=== PATIENT | female | born 1945 | race Caucasian/White ===

== ENCOUNTER 2016-08-16 14:49 | Outpatient (CLI) | payer MEDICARE, OTHER | END 2016-08-16 14:50 | disposition home or self-care (01) | DX: R53.83 Other fatigue (principal); E03.9 Hypothyroidism, unspecified; Z13.220 Encounter for screening for lipoid disorders ==

== ENCOUNTER 2017-07-06 11:17 | Outpatient (CLI) | payer MEDICARE, OTHER ==
--- NOTE | 2017-07-07 14:16 | Mammography Report ---
DIGITAL SCREENING MAMMOGRAM: 07/06/2017 CLINICAL INDICATION: A 72-year-old nulliparous patient with history of benign biopsies for screening. COMPARISON: Films from [place], [place], dated 02/19/2016, 03/05/2014, 05/07/2012, 08/18/2010 07/06/2009. TECHNIQUE: Routine CC and MLO projections were obtained of the breasts. FINDINGS: The breasts again demonstrate heterogeneously dense fibroglandular parenchyma bilaterally. Coarse and punctate, typically benign calcifications are present. No suspicious masses, clustered microcalcifications, or regions of architectural distortion are identified. IMPRESSION: BENIGN FINDINGS. RECOMMENDATION: Routine annual screening unless otherwise clinically indicated. BIRADS category 2 - benign findings. STANDARD QUALIFYING STATEMENTS: 1. This examination was reviewed with the aid of Computer-Aided Detection (CAD). 2. A negative or benign imaging report should not delay biopsy if clinically suspicious findings are present. Consider surgical consultation if warranted. More than 5% of cancers are not identified by imaging. 3. Dense breasts may obscure an underlying neoplasm. TD: 07/07/2017 14:15
== END 2017-07-06 11:18 | disposition home or self-care (01) ==
LOC: DI.S 11:17
PROVIDERS: ATTEND Internal Medicine
DX: Z12.31 Encounter for screening mammogram for malignant neoplasm of breast (principal)
CPT/HCPCS: 77067

== ENCOUNTER 2018-04-04 11:03 | Outpatient (CLI) | payer MEDICARE, OTHER ==
--- NOTE | 2018-04-04 11:59 | XRAY Report ---
Reason: OTHER BURSITIS OF HIP,LEFT HIP Procedure Date: 04/04/2018 Accession Number: [id number] / [id number] Procedure: XR - Hip w/Pelvis 2-3V LT CPT Code: FULL RESULT: EXAM: LEFT HIP AND PELVIS RADIOGRAPHY EXAM DATE: 04/04/2018 11:17 AM. HISTORY: Left sided hip pain for 1 month. COMPARISONS: None. TECHNIQUE: 1 view of the pelvis and 1 view of the hip. FINDINGS: The patient is status post bilateral hip arthroplasty, long stem prosthesis on the right. Less than 1 mm of periprosthetic lucency on the left is felt to remain within normal limits. No hardware failure, dislocation or fracture is identified. IMPRESSION: Status post bilateral hip arthroplasty. RADIA
== END 2018-04-04 11:04 | disposition home or self-care (01) ==
LOC: DI 11:03
PROVIDERS: ATTEND Nurse Practitioner Family
DX: M70.72 Other bursitis of hip, left hip (principal); Z96.643 Presence of artificial hip joint, bilateral

== ENCOUNTER 2021-02-14 12:23 | Outpatient (CLI) | payer MEDICARE, OTHER ==
--- NOTE | 2021-02-16 10:22 | Mammography Report ---
BILATERAL DIGITAL SCREENING MAMMOGRAM 3D/2D WITH EXAGGERATED CC: 02/14/2021 CLINICAL: Routine screening. Comparison is made to exams dated: 07/06/2017 mammogram - [facility], 03/05/2014 mamm ogram, 09/20/2005 mammogram, 09/26/2006 mammogram, 04/04/2008 mammogram, and 07/06/2009 mammogram - [facility]. The tissue of both breasts is predominantly fatty. No significant masses, calcifications, or other findings are seen in either breast. There has been no significant interval change. IMPRESSION: NEGATIVE There is no mammographic evidence of malignancy. A 1 year screening mammogram is recommended. This exam was interpreted at Station ID: [id number]. NOTE: For mammograms, a report in lay terms will be sent to the patient. Approximately 15% of breast malignancies will not be visualized mammographically. In the management of a palpable breast mass, a negative mammogram must not discourage biopsy of a clinically suspicious lesion. Electronically Signed By: Raymundo Whittington M.D., jr/rey:02/15/2021 08:35:37 ACR BI-RADS Category 1: Negative 3341F PARENCHYMAL PATTERN: (F) - The breast(s) demonstrate(s) diffuse fatty replacement. BI-RADS CATEGORY: (1) - 1 RECOMMENDATION: (ANNUAL) - Recommend routine annual screening mammography. [id number] 1 year screening LATERALITY: (B)
== END 2021-02-14 12:24 | disposition home or self-care (01) ==
LOC: DI.S 12:23
PROVIDERS: ATTEND Internal Medicine
DX: Z12.31 Encounter for screening mammogram for malignant neoplasm of breast (principal)

== ENCOUNTER 2021-06-07 14:54 | Outpatient (CLI) | payer MEDICARE, OTHER ==
--- NOTE | 2021-06-07 16:26 | XRAY Report ---
PROCEDURE: Cervical Spine 2 View INDICATIONS: NECK PAIN TECHNIQUE: 3 view(s) of the cervical spine were acquired. COMPARISON: None. FINDINGS: Bones: No fractures or dislocations to the T1 level. Loss of normal cervical lordosis. Multilevel di sc space narrowing and endplate osteophyte formation. Anterior fusion hardware at C5-C6. Facet hypert rophy throughout the mid and lower cervical spine. The lateral masses of C1 appear intact on the odon toid view. No suspicious bony lesions. Soft tissues: No prevertebral soft tissue swelling. IMPRESSION: 1. Postsurgical sequelae. 2. Multilevel degenerative disc and facet disease. Reviewed by: Cheryl Darling MD on 06/07/2021 4:25 PM PST Approved by: Cheryl Darling MD on 06/07/2021 4:25 PM PST Station ID: [id number]
== END 2021-06-07 14:55 | disposition home or self-care (01) ==
LOC: DI.S 14:54
PROVIDERS: ATTEND Nurse Practitioner Family
DX: M47.812 Spondylosis without myelopathy or radiculopathy, cervical region (principal); M50.30 Other cervical disc degeneration, unspecified cervical region

== ENCOUNTER 2021-10-15 10:33 | Outpatient (CLI) | payer MEDICARE, OTHER ==
[2021-10-15 14:49] LABS: BASOPHILS % (AUTO) 0.7 %; EOSINOPHILS # (AUTO) 0.1 10^3/uL (0.0-0.7); EOSINOPHILS % (AUTO) 2.3 %; HGB - HEMOGLOBIN 13.6 g/dL (12.0-16.0); LYMPHOCYTES # (AUTO) 1.6 10^3/uL (1.5-3.5); LYMPHOCYTES % (AUTO) 28.3 %; MEAN CORPUSCULAR HEMOGLOBIN 31.3 pg (27.0-31.0); MEAN CORPUSCULAR HGB CONC 31.6 g/dL (32.0-36.0); MEAN CORPUSCULAR VOLUME 99.1 fL (81.0-99.0); MEAN PLATELET VOLUME 11.9 fL (7.9-10.8); MONOCYTES # (AUTO) 0.6 10^3/uL (0.0-1.0); MONOCYTES % (AUTO) 9.9 %; NEUTROPHILS # (AUTO) 3.3 10^3/uL (1.5-6.6); NEUTROPHILS % (AUTO) 58.6 %; PLT - PLATELET COUNT 275 10^3/uL (130-450); RED BLOOD COUNT 4.34 10^6/uL (4.20-5.40); RED CELL DISTRIBUTION WIDTH 12.9 % (12.0-15.0); WHITE BLOOD COUNT 5.7 x10^3/uL (4.8-10.8)
[2021-10-15 16:13] LABS: THYROID STIMULATING HORMONE 1.4 uIU/mL (0.34-5.60)
[2021-10-15 16:24] LABS: ALBUMIN 4.1 g/dL (3.2-5.5); ALBUMIN/GLOBULIN RATIO 1.5 (1.0-2.2); BILIRUBIN,TOTAL 0.7 mg/dL (0.2-1.0); CALCIUM 9.7 mg/dL (8.5-10.3); CREATININE 0.8 mg/dL (0.4-1.0); POTASSIUM 4.3 mmol/L (3.5-5.0); TOTAL PROTEIN 6.8 g/dL (6.7-8.2)
[2021-10-16 07:08] LABS: HCV AB <0.1 s/co ratio (0.0-0.9)
== END 2021-10-15 10:34 | disposition home or self-care (01) ==
LOC: LAB.S 10:33
PROVIDERS: ATTEND Nurse Practitioner Family
DX: R53.83 Other fatigue (principal); E03.9 Hypothyroidism, unspecified
CPT/HCPCS: 36415; 80053; 84443; 85025; 86803; 87389

== ENCOUNTER 2023-02-13 14:17 | Outpatient (CLI) | payer MEDICARE, OTHER ==
--- NOTE | 2023-02-14 09:38 | Mammography Report ---
BILATERAL DIGITAL SCREENING MAMMOGRAM 3D/2D: 02/13/2023 CLINICAL: Routine screening. Comparison is made to exams dated: 02/14/2021 mammogram, 07/06/2017 mammogram - [facility], 03/05/2014 mammogram, and 03/05/2014 mammogram - [facility]. Both breasts are heterogeneously dense, which may obscure small masses (category c / 51-75% glandular tissue). No significant masses, calcifications, or other findings are seen in either breast. There has been no significant interval change. IMPRESSION: NEGATIVE There is no mammographic evidence of malignancy. A 1 year screening mammogram is recommended. Based on the Tyrer Cuzick model (a risk assessment model) the patients lifetime risk is 5.0% and her 10 year risk is 0.0%. According to the ACR, ACS, and NCCN guidelines, an annual breast MRI exam jazz g with mammogram is recommended if the patients lifetime risk is 20% or greater. This exam was interpreted at Station ID: [id number]. NOTE: For mammograms, a report in lay terms will be sent to the patient. Approximately 15% of breast malignancies will not be visualized mammographically. In the management of a palpable breast mass, a negative mammogram must not discourage biopsy of a clinically suspicious lesion. Electronically Signed By: Cara beach/rey:02/13/2023 17:21:37 letter sent: No_Letter ACR BI-RADS Category 1: Negative 3341F PARENCHYMAL PATTERN: (D) - The breast(s) demonstrate(s) heterogeneously dense fibroglandular tye [place]. BI-RADS CATEGORY: (1) - 1 Mammogram [id number] 1 year screening LATERALITY: (B)
== END 2023-02-13 14:18 | disposition home or self-care (01) ==
LOC: DI 14:17
PROVIDERS: ATTEND Nurse Practitioner Family
DX: Z12.31 Encounter for screening mammogram for malignant neoplasm of breast (principal); R92.333 Mammographic heterogeneous density, bilateral breasts

== ENCOUNTER 2023-02-13 14:18 | Outpatient (CLI) | payer MEDICARE, OTHER ==
--- NOTE | 2023-02-13 15:22 | DEXA Report ---
PROCEDURE: Dexa Spine and/or Hip INDICATIONS: POST MENOPAUSAL TECHNIQUE: Dual energy x-ray absorptiometry (DXA) was performed on a Personal On Demand System. Regions measur ed are the AP Spine, femoral neck, and if needed forearm. COMPARISON: None FINDINGS: Lumbar Spine: Bone Mineral Density 1.432 g/cm/cm,T score 2.1. Left Forearm: Bone Mineral Density 0.4-3 g/cm/cm, T score -4.3. (T score greater or equal to -1.0: NORMAL) (T score from -1.1 to -2.4: OSTEOPENIA) (T score less than or equal to -2.5 to: OSTEOPOROSIS) Impression: By WHO criteria, this patient has osteoporosis. Patients with diagnosis of osteoporosis or osteopenia should have regular bone mineral density assess ment. For those eligible for Medicare, routine testing is allowed once every 2 years. Testing frequ ency can be increased for patients who have rapidly progressing disease or for those who are receivin g medical therapy to restore bone mass. Reviewed by: Daljit Wilson on 02/13/2023 3:20 PM PDT Approved by: Daljit Wilson on 02/13/2023 3:20 PM PDT Station ID: [id number]
== END 2023-02-13 14:19 | disposition home or self-care (01) ==
LOC: DI 14:18
PROVIDERS: ATTEND Nurse Practitioner Family
DX: M81.0 Age-related osteoporosis without current pathological fracture (principal); Z78.0 Asymptomatic menopausal state

== ENCOUNTER 2023-02-16 09:58 | Outpatient (CLI) | payer MEDICARE, OTHER | END 2023-02-16 09:59 | disposition critical access hospital (66) | LOC: EMS 09:58 | DX: R47.1 Dysarthria and anarthria (principal) | CPT/HCPCS: A0425; A0429 ==

== ENCOUNTER 2023-02-16 10:37 | Emergency (ER) | payer MEDICARE, OTHER ==
--- NOTE | 2023-02-16 11:20 | ED Physician Documentation ---
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 The next morning she noticed blurriness of vision which continued through the day. No other focal deficits. No loss of vision. +word search.) Timing - details: Abrupt onset (She had what seem like her ophthalmic migraine 1 and half nights ago. She noticed some blurry vision yesterday through the day. She had not spoken with anyone. Talking this morning she noticed some word search and slow speech pattern. No other focal deficits.) Severity of deficit: Mild Weakness: No: Face, Arm, Leg Numbness: No: Face, Arm, Leg Associated symptoms: Other (trouble word search and slower speech pattern. No dysarthria.). No: Headache, Nausea / vomiting, Fall, Head injury Contributing factors: negative: Anticoagulated, Vascular dz, Atrial fibrillation Review of Systems Constitutional: denies: Fever, Chills Eyes: denies: Loss of vision Nose: denies: Rhinorrhea / runny nose, Congestion Throat: denies: Sore throat Cardiac: denies: Chest pain / pressure, Palpitations Respiratory: denies: Cough Musculoskeletal: denies: Neck pain, Back pain Neurologic: reports: Difficulty speaking. denies: Focal weakness, Numbness PD PAST MEDICAL HISTORY - Past Medical History Cardiovascular: None Respiratory: None Neuro: None Endocrine/Autoimmune: None Psych: Depression (recently changed from Lexapro to Prozac 2 months ago and Had purporion increased 150 to 300 mg 2 weeks ago. Feeling okay with it. ) - Present Medications Home Medications: Ambulatory Orders Medication Instructions Recorded Confirmed Fluoxetine HCl [Prozac] 20 mg PO DAILY 02/16/23 02/16/23 Levothyroxine [Synthroid] 100 mcg PO QDAC 02/16/23 02/16/23 Losartan [Cozaar] 50 mg PO DAILY 02/16/23 02/16/23 buPROPion HCL [Wellbutrin Xl] 300 mg PO DAILY 02/16/23 02/16/23 - Allergies Allergies/Adverse Reactions: Allergies Allergy/AdvReac Type Severity Reaction Status Date / Time codeine Allergy Rash Verified 02/16/23 10:49 Penicillins Allergy Rash Verified 02/16/23 10:49 Sulfa (Sulfonamide Allergy Rash Verified 02/16/23 10:49 Antibiotics) PD ED PE NORMAL - Vitals Vital signs reviewed: Yes - General General: Alert and oriented X 3, Well developed/nourished - HEENT HEENT: Atraumatic - Neck Neck: Supple, no meningeal sign, No adenopathy, No JVD, No bruit - Cardiac Cardiac: RRR, No murmur - Respiratory Respiratory: Clear bilaterally - Abdomen Abdomen: Soft, Non tender - Derm Derm: Normal color, Warm and dry - Neuro Neuro: Alert and oriented X 3, solvent plant treater 2-12 intact, No motor deficit, No sensory deficit. No: Normal speech (mild pauses for word search and somewhat slow speech meter. ) Eye Opening: Spontaneous Motor: Obeys Commands Verbal: Oriented GCS Score: 15 NIHSS - Level of Consciousness Level of consciousness: (0) Alert, Keenly responsive LOC Questions: (0) Answers both Q's correct LOC Commands: (0) Performs both correctly - Gaze Best Gaze: (0) Normal - Visual Visual: (0) No loss - Facial Palsy Facial Palsy: (0) Normal, symmetrical movement - Motor Arms (both separate) Motor Arm (right): (0) No drift Motor Arm (left): (0) No drift - Motor Legs (both separate) Motor Leg (right): (0) No drift Motor Leg (left): (0) No drift - Limb Ataxia Limb Ataxia: (0) Absent - Sensory Sensory: (0) Normal - Best Language Best Language: (1) [id number] - Dysarthria Dysarthria: (0) Normal - Extinction and Inattention (formally neg Extinction and inattention: (0) No abnormality - Total Score/Results Total Score/Result: 1 Results - Vitals Vitals: Vital Signs - 24 hr 02/16/23 02/16/23 02/16/23 10:45 14:15 16:00 Temperature 36.6 C Heart Rate 62 62 59 L Respiratory 16 16 15 Rate Blood Pressure 182/92 H 161/81 H 166/104 H O2 Saturation 97 98 98 02/16/23 02/16/23 18:00 20:22 Temperature 36.7 C Heart Rate 66 57 L Respiratory 15 23 Rate Blood Pressure 196/117 H 162/89 H O2 Saturation 99 98 Oxygen O2 Source Room air - Labs Labs: Laboratory Tests 02/16/23 02/16/23 02/16/23 12:00 12:00 12:00 WBC 6.5 RBC 4.44 Hgb 14.2 Hct 43.4 MCV 97.7 MCH 32.0 H MCHC 32.7 RDW 12.0 Plt Count 252 MPV 11.1 H Neut # (Auto) 4.6 Lymph # (Auto) 1.3 L [place] # (Auto) 0.5 Eos # (Auto) 0.1 Baso # (Auto) 0.0 Absolute Nucleated RBC 0.00 Nucleated RBC % 0.0 ESR 4 Sodium 140 Potassium 4.1 Chloride 104 Carbon Dioxide 30 Anion Gap 6.0 BUN 23 H Creatinine 0.8 Estimated GFR (MDRD) 70 L Glucose 92 Calcium 9.8 Magnesium 1.9 Total Bilirubin 0.8 AST 18 ALT 14 Alkaline Phosphatase 70 Total Protein 6.9 Albumin 4.4 Globulin 2.5 Albumin/Globulin Ratio 1.8 Lipase 20 SARS-CoV-2 (PCR) 02/16/23 19:06 WBC RBC Hgb Hct MCV MCH MCHC RDW Plt Count MPV Neut # (Auto) Lymph # (Auto) [place] # (Auto) Eos # (Auto) Baso # (Auto) Absolute Nucleated RBC Nucleated RBC % ESR Sodium Potassium Chloride Carbon Dioxide Anion Gap BUN Creatinine Estimated GFR (MDRD) Glucose Calcium Magnesium Total Bilirubin AST ALT Alkaline Phosphatase Total Protein Albumin Globulin Albumin/Globulin Ratio Lipase SARS-CoV-2 (PCR) NOT DETECTED PD Medical Decision Making - ED course Complexity details: reviewed results, considered differential, d/w patient, d/w device sales consultant (Dr. Cornejo - telestroke - who recommends trnasfer to Vascular due to symptomatic stenosis, for presumed intervention.) Reviewed Lab Results: Brain MRI was done which showed a left posterior frontal infarct consistent with a MCA distribution. There was a small area of injury also in the posterior parietal, again likely MCA distribution. No tumor swelling or bleeding. We then were going to get a carotid ultrasound but there was a delay in the ultrasound techs being available so I shared decision with the patient changed to a CT angio of the head and neck. This showed a 40 to 50% stenosis on the right internal carotid (insignificant) but a 70-80% stenosis on the left internal carotid. Unclear on the clinical significance and course of treatment for this so I will consult stroke neurology for advice. The patient was given aspirin and Plavix here in the department. Awaiting callback from neurology. Labs were normal without any electrolyte abnormalities nor blood count abnormalities. The patient had wondered whether her symptoms could be a side effect of the recent medication increases. Given the positive stroke findings on the MRI, inclined to think its not related to the medications. ED course: The patient has some expressive aphasia and slow speech pattern along with some blurred vision on the right though that has improved. The symptoms started likely yesterday but vision tinsley was 1-1/2 nights ago which was consistent with her vascular ophthalmic migraine. No history of stroke or A-fib. She was noted to have some word searching and some mild slow meter to her speech pattern but no dysarthria nor focal deficits otherwise. Brain MRI showed left MCA frontal and posterior temporal infarcts consistent with embolic. We were going to do a carotid ultrasound but there was a delay in obtaining that and so shared decision opted for CT angio of the neck and head. This showed a 70 to 80% stenosis of the left internal carotid. I discussed this with the telestroke neurology who recommended transfer to a facility with playground attendant for presumably endovascular intervention given the symptomatic degree of stenosis. The neurologist did concur with aspirin and Plavix and did not see need for heparin. I kept the patient abreast of the findings along the way. There was a couple of hour process in getting the brain MRI which was more useful and definitive and then some delay in awaiting the ultrasound and then getting the CT angio. The patient has not had any worsened symptoms. In fact her speech pattern is now quite normal and she feels it is back to her normal. However she does have the acute stroke on brain MRI. She was given aspirin and Plavix here in the department. We are having our community living coach start looking for bed availability at other facilities. Her blood pressure has been reasonable at 160s systolic. After hearing the results earlier and then with the CT scan her blood pressure has been increasing. Last reading was approximately 1 90-200 systolic. At this point I think it is a bit more anxiety related and also she had not had her morning losartan. We will give her dose of losartan for the day and I will actually start with 0.5 mg lorazepam and see if that helps her blood pressure the most as likely just a catecholamine effect from the situational stress. Reassess the blood pressure and an hour or so and see if it is improving. Given the recent acute stroke, permissive moderate elevation of blood pressure is reasonable and I would not wanted to go low normal per se. Departure - Departure Disposition: 02 Transfer Acute Care Hosp Clinical Impression: Expressive aphasia Cerebrovascular accident (CVA) Qualifiers: CVA mechanism: embolism Precerebral and cerebral artery: middle cerebral artery Laterality of affected vessel: left Qualified Code(s): I63.412 - Cerebral infarction due to embolism of left middle cerebral artery Stenosis of internal carotid artery with cerebral infarction Qualifiers: Laterality: left Qualified Code(s): I63.232 - Cerebral infarction due to unspecified occlusion or stenosis of left carotid arteries Condition: Stable Record reviewed to determine appropriate education?: Yes Forms: PCP List
[2023-02-16 12:06] LABS: BASOPHILS % (AUTO) 0.5 %; EOSINOPHILS # (AUTO) 0.1 10^3/uL (0.0-0.7); EOSINOPHILS % (AUTO) 1.5 %; HCT - HEMATOCRIT 43.4 % (37.0-47.0); HGB - HEMOGLOBIN 14.2 g/dL (12.0-16.0); LYMPHOCYTES # (AUTO) 1.3 10^3/uL (1.5-3.5); LYMPHOCYTES % (AUTO) 20.5 %; MEAN CORPUSCULAR HGB CONC 32.7 g/dL (32.0-36.0); MEAN CORPUSCULAR VOLUME 97.7 fL (81.0-99.0); MEAN PLATELET VOLUME 11.1 fL (7.9-10.8); MONOCYTES # (AUTO) 0.5 10^3/uL (0.0-1.0); MONOCYTES % (AUTO) 6.9 %; NEUTROPHILS # (AUTO) 4.6 10^3/uL (1.5-6.6); NEUTROPHILS % (AUTO) 70.4 %; PLT - PLATELET COUNT 252 10^3/uL (130-450); RED BLOOD COUNT 4.44 10^6/uL (4.20-5.40); WHITE BLOOD COUNT 6.5 x10^3/uL (4.8-10.8)
[2023-02-16 12:33] LABS: ALBUMIN 4.4 g/dL (3.2-5.5); ALBUMIN/GLOBULIN RATIO 1.8 (1.0-2.2); BILIRUBIN,TOTAL 0.8 mg/dL (0.2-1.0); CALCIUM 9.8 mg/dL (8.5-10.3); CREATININE 0.8 mg/dL (0.6-1.3); MAGNESIUM 1.9 mg/dL (1.7-2.3); POTASSIUM 4.1 mmol/L (3.5-4.5); TOTAL PROTEIN 6.9 g/dL (6.4-8.9)
--- NOTE | 2023-02-16 13:58 | MRI Report ---
PROCEDURE: BRAIN WO INDICATIONS: expressive aphasia for a day TECHNIQUE: Noncontrast axial T1 spin echo, axial T2 fast spin echo, sagittal and axial FLAIR, coronal T2 fast sp in echo, axial gradient echo, axial diffusion and ADC through the brain. COMPARISON: None. FINDINGS: Image quality: Excellent. CSF Spaces: Basal cisterns are patent. No extra-axial fluid collections. Ventricles are normal in size and shape. Brain: No intracranial masses or hemorrhage. Vargas/white matter interface is normal. Brainstem appe ars normal. Diffusion-weighted images of acute left MCA distribution infarct predominantly involving frontal cortex, and also some peripheral deep white matter subjacent to the cortex the infarct invol ves a moderate amount of frontal cortex. There is also a small amount of infarcted brain parenchyma i n the posterior left temporal region and temporal occipital region.. There is associated cytotoxic ed salma present. Findings are consistent with a left MCA distribution embolic event. No evidence of hemor rhage. No shift. No chronic ischemic insults. Mild small vessel ischemic change. Normal intravascular flow voids are present. Skull and face: Calvarium has normal marrow signal. Orbits appear normal. Sinuses: Sinuses and mastoids are clear. IMPRESSION: 1. Acute left MCA distribution embolic infarct predominantly involving a moderate sized area of left frontal cortex. 2. There is also a small area of infarct involving the posterior left temporal lobe and temporal occi pital junction region. This may potentially be related to an MCA distribution infarct, or potentially can indicate a cardiac source with 2 separate left-sided vascular distributions. Reviewed by: Hernesto Rivera MD on 02/16/2023 1:57 PM PDT Approved by: Hernesto Rivera MD on 02/16/2023 1:57 PM PDT Station ID: [id number]
[2023-02-16] MEDS ORDERED: ASPIRIN CHEW 81 MG TABLET PO STA (14:47)
[2023-02-16] MEDS ORDERED: CLOPIDOGREL 75 MG TABLET PO STA (14:47)
--- NOTE | 2023-02-16 17:45 | CT Report ---
PROCEDURE: CT Angio Head/Neck INDICATIONS: word search, confused for 15 min today TECHNIQUE: After the administration of intravenous contrast, 1 mm thick sections acquired from the aortic arch t hrough the [place]. Post-contrast 4.5 mm thick sections then re-acquired from the foramen m agnum to the vertex. 3-dimensional luihrbx-wmzuxqpia-dbnykzbimj (MIP) and/or volume rendering reform ats were acquired of the central intracranial vasculature and neck separately. For radiation dose re duction, the following was used: automated exposure control, adjustment of mA and/or kV according to patient size. CONTRAST: Omni 300 80ml COMPARISON: Correlation is made to accompanying brain MRI. FINDINGS: Image quality: Limited by bolus timing, with venous contamination. There is streak artifact seen thr ough the level of the shoulders. HEAD CT: CSF Spaces: Basal cisterns are patent. No extra-axial fluid collections. Ventricles are normal in size and shape. Brain: No midline shift. No intracranial bleeds or masses. No abnormal intracranial enhancement. Vargas-white interface appears normal. Skull and face: Calvarium and visualized facial bones appear intact, without suspicious lesions. Sinuses: Visualized sinuses and mastoids are clear. HEAD CT ANGIOGRAPHY: Anterior circulation: Intracranial internal carotid arteries are normal in size and flow. The flow within the paired anterior cerebral arteries is normal and symmetric. The flow within the middle cer ebral arteries is normal and symmetric. The anterior communicating artery is seen. No aneurysms are seen. Posterior circulation: The visualized portions of the vertebral arteries demonstrate normal caliber, and join to form a normal appearing basilar artery. Incidental note is made of a prominent left po sterior communicating artery, with a diminutive left P1 segment. This is attributed to a type o rigin of the right posterior cerebral artery, which is considered to be a developmental variant of ty pically no clinical consequence. The flow within the posterior cerebral arteries is normal and symm etric. No stenoses, occlusions, or aneurysms. NECK CT ANGIOGRAPHY: Carotid system: The great vessels demonstrate a conventional anatomy as they arise from the aortic a rch. The origins of the common carotid arteries appear patent. The common carotid arteries demonstr ate normal caliber and courses. The bifurcation regions demonstrate atherosclerotic irregularity and calcification. There is 70-80% narrowing seen involving the left proximal internal carotid artery. T here is 40-50% narrowing seen involving the right proximal internal carotid artery. The more distal i nternal carotid arteries demonstrate normal course and caliber. Posterior circulation: The origins of the vertebral arteries both appear widely patent. The more cosby perior extracranial portions of both vertebral arteries also demonstrate normal courses and calibers. They join to form a normal appearing basilar artery. Soft tissues: Visualized neck soft tissues demonstrate no suspicious abnormalities. Bones: No suspicious bony lesions. Visualized cervical spine appears normally aligned. There is fu wiliam seen involving the C3-C4 level. Anterior fixation hardware can be seen at C5-C6. Focal degenerat [place] change is seen at C6-C7. IMPRESSION: Focal 70-80% narrowing seen involving the left internal carotid artery origin. No significant vertebral artery abnormality is seen. No significant intracranial arterial abnormalities are seen. Additional findings: type origin of the left posterior cerebral artery Cervical spine postoperative and degenerative change. The estimate of stenosis included in the report of the imaging study was calculated using the NASCET method Reviewed by: Srinivasan Slaughter MD on 02/16/2023 4:44 PM RUBEN Approved by: Srinivasan Slaughter MD on 02/16/2023 4:44 PM RUBEN Station ID: [id number]
[2023-02-16] MEDS ORDERED: iohexoL-300 100 ML VIAL IVP ONE (18:51)
[2023-02-16] MEDS ORDERED: LOSARTAN 50 MG TABLET PO STA (19:12)
[2023-02-16] MEDS ORDERED: LORazepam 2 MG/ML VIAL IVP STA (19:13)
--- NOTE | 2023-02-17 00:57 | ED Physician Documentation ---
ED Addendum - Addendum Addendum: 02/17/23 00:56 Patient endorsed to me by daytime physician at 10 PM shift change. Med rec was completed and I have have ordered her home medications in addition to aspirin and a statin daily. If patient does not go to bed at [facility] overnight I will endorsed to incoming daytime EDMD at 7 AM shift change.
[2023-02-17] MEDS ORDERED: ATORVASTATIN 40 MG TABLET PO SCH (07:00)
[2023-02-17] MEDS ORDERED: LEVOTHYROXINE 100 MCG TABLET PO SCH (07:00)
[2023-02-17] MEDS ORDERED: buPROPion SR 150 MG TABLET PO SCH (07:00)
[2023-02-17] MEDS ORDERED: ASPIRIN 325 MG TABLET PO SCH (07:00)
[2023-02-17] MEDS ORDERED: FLUoxetine 10 MG CAPSULE PO SCH (09:00)
[2023-02-17] MEDS ORDERED: LOSARTAN 50 MG TABLET PO SCH (09:00)
[2023-02-17] MEDS ORDERED: CLOPIDOGREL 75 MG TABLET PO SCH (10:00)
[2023-02-17 10:14] VITALS: O2SAT 98
[2023-02-17 12:26] VITALS: BP 176/82
--- NOTE | 2023-02-17 12:48 | ED Physician Documentation ---
ED Addendum - Addendum Addendum: 02/17/23 12:46 I received a call from Anastasiya Peter who is vascular surgeon at [facility]. They do not have any beds available but he said he there standard by vascular surgery would be intervention within a week for this degree of stenosis. That had been stated by the stroke neurologist as well. The attempted transfer was to be able to expedite that. However Dr. Peter said he will be able to contact the patient and arrange outpatient endovascular intervention at [facility] early next week, likely Monday. This will fit within the 1 week timeframe. The patient is to continue her aspirin and Plavix and return if recurring symptoms. Otherwise they do have the patient's demographics and we will call her this afternoon with that time and date of to show up in any instructions preceding. At this point the patient will be discharged home in stable condition Diagnoses: Acute left stroke 2. Expressive aphasia 3. Internal carotid stenosis on the left The patient is awake alert and conversant at this time. She is not having any aphasia continued. No other focal deficits. She is in agreement with the plan. Her friend is with her and will assist in getting her there next week.
== END 2023-02-17 13:21 | disposition home or self-care (01) ==
LOC: EDUNIT# → SUPCPDRO 10:37 → ED 10:37
DX: I63.412 Cerebral infarction due to embolism of left middle cerebral artery (principal); R29.701 NIHSS score 1; I63.232 Cerebral infarction due to unspecified occlusion or stenosis of left carotid arteries; I69.320 Aphasia following cerebral infarction; Z20.822 Contact with and (suspected) exposure to COVID-19
CPT/HCPCS: 36415; 70496; 70498; 70551; 80053; 83690; 83735; 85025; 85651; 87635; 93005; 99284; A9270; J2060; Q9967

== ENCOUNTER 2023-04-17 18:13 | Outpatient (CLI) | payer MEDICARE, OTHER | END 2023-04-17 23:58 | disposition critical access hospital (66) | LOC: EMS 18:13 | DX: I48.91 Unspecified atrial fibrillation (principal) | CPT/HCPCS: A0425; A0427 ==

== ENCOUNTER 2023-04-17 18:46 | Emergency (ER) | payer MEDICARE, OTHER ==
--- NOTE | 2023-04-17 19:58 | ED Physician Documentation ---
History of Present Illness - Stated complaint Stated Complaint: PALPITATIONS, AFIB - Chief complaint Chief Complaint: Cardiac - History obtained from History obtained from: Patient, Family - History of Present Illness Timing: Today Pain level max: 0 Pain level now: 0 - Additonal information Additional information: 78-year-old female with a history of atrial fibrillation. She is on Eliquis and Pradaxa at home. She states that she bought a home ECG monitor and today she did an ECG and found herself to be in atrial fibrillation. She had been cardioverted several weeks ago. She is asymptomatic. No chest pain. No shortness of breath. No fevers. No chills. No numbness or tingling. Nothing makes it better or worse. She initially was tachycardic with EMS, they gave 500 mL of normal saline and heart rate decreased to 90-100. She is on metoprolol at home. Recently decreased from 50 mg of the extended release to 25 mg extended release. Review of Systems Constitutional: denies: Fever, Chills Ears: denies: Ear pain Nose: denies: Rhinorrhea / runny nose, Congestion Throat: denies: Sore throat Cardiac: denies: Chest pain / pressure, Palpitations, Calf pain Respiratory: denies: Dyspnea, Cough GI: denies: Abdominal Pain, Nausea, Vomiting, Diarrhea : denies: Dysuria Skin: denies: Rash Musculoskeletal: denies: Neck pain Neurologic: denies: Headache PD PAST MEDICAL HISTORY - Past Medical History Past Medical History: Yes Cardiovascular: Hypertension Respiratory: None Neuro: None Endocrine/Autoimmune: None GI: None NAPPER TENDER: None : None HEENT: Other Psych: Depression Musculoskeletal: None Derm: None - Past Surgical History Past Surgical History: Yes Ortho: Hip replacement HEENT: Cataracts - Present Medications Home Medications: Ambulatory Orders Medication Instructions Recorded Confirmed Fluoxetine HCl [Prozac] 20 mg PO DAILY 02/16/23 02/17/23 Levothyroxine [Synthroid] 100 mcg PO QDAC 02/16/23 02/17/23 Losartan [Cozaar] 50 mg PO DAILY 02/16/23 02/17/23 buPROPion HCL [Wellbutrin Xl] 300 mg PO DAILY 02/16/23 02/17/23 Clopidogrel [Plavix] 75 mg PO DAILY 30 Days #30 tablet 02/17/23 - Allergies Allergies/Adverse Reactions: Allergies Allergy/AdvReac Type Severity Reaction Status Date / Time codeine Allergy Rash Verified 02/16/23 10:49 Penicillins Allergy Rash Verified 02/16/23 10:49 Sulfa (Sulfonamide Allergy Rash Verified 02/16/23 10:49 Antibiotics) - Social History Does the pt smoke?: No Smoking Status: Never smoker Does the pt drink ETOH?: No Does the pt have substance abuse?: No - Immunizations Immunizations are current?: Yes - POLST Patient has POLST: No PD ED PE NORMAL - Vitals Vital signs reviewed: Yes - General General: Alert and oriented X 3, No acute distress - HEENT HEENT: PERRL, Moist mucous membranes - Neck Neck: Supple, no meningeal sign - Cardiac Cardiac: Other (irregularly irregular) - Respiratory Respiratory: No respiratory distress, Clear bilaterally - Abdomen Abdomen: Soft, Non tender, Non distended - Back Back: No CVA TTP, No spinal TTP - Derm Derm: Warm and dry, No rash - Extremities Extremities: No edema, No calf tenderness / cord - Neuro Neuro: Alert and oriented X 3 - Psych Psych: Normal mood, Normal affect Results - Vitals Vitals: Vital Signs - 24 hr 04/17/23 04/17/23 04/17/23 18:56 19:01 20:07 Temperature 35.9 C L Heart Rate 102 H 103 H 114 H Respiratory 15 19 15 Rate Blood Pressure 138/94 H 138/98 H 140/99 H O2 Saturation 98 93 97 Oxygen O2 Source Room air - EKG (time done) 1937 EKG releavant findings:: EKG personally interpreted by author of this note. Relevant findings are: Rate: Rate (enter#) (109) Rhythm: Atrial fibrillation [place]: Normal QRS: Normal Ischemia: Normal ST segments PD Medical Decision Making - ED course Complexity details: reviewed results, re-evaluated patient, considered differential, d/w patient, d/w family ED course: Patient with a history of chronic atrial fibrillation, likely paroxysmal. She is in atrial fibrillation here but is asymptomatic with this. Again no chest pain, no shortness of breath and no feeling of palpitations. She has rate controlled in the emergency department, occasionally she will have a heart rate above 100 but the vast majority of the time she is around 80-90. We did discuss cardioversion, electrical or chemical. As the patient is anticoagulated, rate controlled and asymptomatic, she declines this. We will have her continue her medications, can likely increase her metoprolol back to 50 mg of the ER daily. 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 No indication for further workup in the emergency department. No emergency medical condition at this time. Patient counseled regarding signs and symptoms for which I believe and urgent re-evaluation would be necessary. Patient with good understanding of and agreement to plan and is comfortable going home at this time This document was made in part using voice recognition software. While efforts are made to proofread this document, sound alike and grammatical errors may occur. Departure - Departure Disposition: Home, Self Care Clinical Impression: Atrial fibrillation Qualifiers: Atrial fibrillation type: unspecified Qualified Code(s): I48.91 - Unspecified atrial fibrillation Condition: Good Instructions: ED Afib Follow-Up: ISIDRO UNDERWOOD ARNP [Primary Care Provider] - JUAN FRANCISCO GARZA MD [Physician No Access] - Comments: Continue your current medications at home. Please return if you worsen. As we discussed you can increase your metoprolol back to 2 tablets daily, total of 50 mg of the extended release. You are in atrial fibrillation, but likely will go back and forth into atrial fibrillation. Your doctor can order a Zio patch or Holter monitor to determine the amount of time you are in atrial fibrillation. If you develop chest pain, shortness of breath or other new or worrisome symptoms, please return for evaluation. Forms: PCP List Discharge Date/Time: 04/17/23 20:07
[2023-04-17 20:16] VITALS: BP 140/99; O2SAT 97
== END 2023-04-17 20:07 | disposition home or self-care (01) ==
LOC: EDUNIT# → ED 18:46
DX: I48.91 Unspecified atrial fibrillation (principal); Z79.01 Long term (current) use of anticoagulants
CPT/HCPCS: 93005; 99283; 99284

== ENCOUNTER 2023-06-09 08:00 | Outpatient (CLI) | payer MEDICARE, OTHER ==
--- NOTE | 2023-06-09 14:31 | XRAY Report ---
PROCEDURE: SI Joints 3+V INDICATIONS: RIGHT SACROILIITIS TECHNIQUE: 3 views of the sacroiliac joints were acquired. COMPARISON: None. FINDINGS: Bones: Study somewhat limited by osteopenia No bony erosions or ankylosis. No suspicious bony lesion s. No fractures. Soft tissues: Overlying bowel gas pattern is normal. Bilateral total hip arthroplasty hardware is pa rtially visualized IMPRESSION: Study is limited by osteopenia. Otherwise unremarkable appearance of the SI joints Reviewed by: Miguel Doe MD on 06/09/2023 2:30 PM PST Approved by: Miguel Doe MD on 06/09/2023 2:30 PM PST Station ID: [id number]
== END 2023-06-09 23:59 | disposition home or self-care (01) ==
LOC: DI.S 08:00
PROVIDERS: ATTEND Emergency Medicine
DX: M46.1 Sacroiliitis, not elsewhere classified (principal); M85.88 Other specified disorders of bone density and structure, other site; Z96.643 Presence of artificial hip joint, bilateral

== ENCOUNTER 2023-07-10 10:14 | Outpatient (CLI) | payer MEDICARE, OTHER | END 2023-07-10 23:59 | disposition critical access hospital (66) | LOC: EMS 10:14 | DX: R04.0 Epistaxis (principal); Z79.01 Long term (current) use of anticoagulants | CPT/HCPCS: A0425; A0429 ==

== ENCOUNTER 2023-07-10 10:45 | Emergency (ER) | payer MEDICARE, OTHER ==
--- NOTE | 2023-07-10 11:02 | ED Physician Documentation ---
History of Present Illness - Stated complaint Stated Complaint: NOSE BLEED - Additonal information Additional information: Patient 78-year-old female presenting via EMS with nosebleed. Nosebleed started this morning. No reported trauma to the nose. Takes Eliquis and Plavix. R eports history of nosebleeds in the past but never this severe. Review of Systems Constitutional: denies: Fever Eyes: denies: Loss of vision Ears: denies: Loss of hearing Nose: denies: Rhinorrhea / runny nose Throat: denies: Dental pain / toothache Cardiac: denies: Chest pain / pressure Respiratory: denies: Dyspnea GI: denies: Abdominal Pain : denies: Dysuria Skin: denies: Rash Musculoskeletal: denies: Neck pain PD PAST MEDICAL HISTORY - Past Medical History Cardiovascular: Hypertension Respiratory: None Neuro: None Endocrine/Autoimmune: None GI: None AUDIO VISUAL DIRECTOR: None : None HEENT: Other Psych: Depression Musculoskeletal: None Derm: None - Past Surgical History Past Surgical History: Yes Ortho: Hip replacement HEENT: Cataracts - Present Medications Home Medications: Ambulatory Orders Medication Instructions Recorded Confirmed Fluoxetine HCl [Prozac] 20 mg PO DAILY 02/16/23 07/10/23 Levothyroxine [Synthroid] 100 mcg PO QDAC 02/16/23 07/10/23 Losartan [Cozaar] 50 mg PO DAILY 02/16/23 07/10/23 buPROPion HCL [Wellbutrin Xl] 300 mg PO DAILY 02/16/23 07/10/23 Clopidogrel [Plavix] 75 mg PO DAILY 30 Days #30 tablet 02/17/23 07/10/23 - Allergies Allergies/Adverse Reactions: Allergies Allergy/AdvReac Type Severity Reaction Status Date / Time codeine Allergy Rash Verified 07/10/23 11:01 Penicillins Allergy Rash Verified 07/10/23 11:01 Sulfa (Sulfonamide Allergy Rash Verified 07/10/23 11:01 Antibiotics) - Social History Does the pt smoke?: No Smoking Status: Never smoker Does the pt drink ETOH?: No Does the pt have substance abuse?: No - Immunizations Immunizations are current?: Yes - POLST Patient has POLST: No PD ED PE NORMAL - General General: Alert and oriented X 3, No acute distress - HEENT HEENT: Atraumatic, Other (Prominent epistaxis, left nostril greater than right.) - Neck Neck: Supple, no meningeal sign - Cardiac Cardiac: RRR - Respiratory Respiratory: No respiratory distress - Abdomen Abdomen: Normal bowel sounds Results - Vitals Vitals: Vital Signs - 24 hr 07/10/23 07/10/23 07/10/23 10:56 13:53 15:40 Temperature 36.7 C Heart Rate 121 H 98 77 Respiratory 20 16 18 Rate Blood Pressure 170/118 H 158/111 H 158/111 H O2 Saturation 97 98 100 Oxygen O2 Source Room air Procedures - Epistaxis - Minor Site: Left, Anterior Preparation: Clots removed, Afrin Treatment: Packing inserted Other: Observed - no bleeding, Pt tolerated well PD Medical Decision Making - ED course Complexity details: re-evaluated patient, considered differential, d/w patient ED course: Patient 78-year-old female presenting with left-sided nosebleed. This is on Eliquis and Plavix. Monitored in the emergency department for several hours. Initially attempted 30 minutes direct pressure with nasal clamp. Patient had some persistent bleeding at that time. Infiltrated with oxymetazoline and applied nasal clamp. Continued to have bleeding. Ultimately after approximately 2 hours in the department patient had mcmahon epigastric packing placed. This successfully ablated her bleeding. Discharged with follow-up instructions for packing removal in 72 hours. Return precautions given. Departure - Departure Disposition: 01 Home, Self Care Clinical Impression: Bleeding nose Instructions: ED Nasal Packing Anterior Removable Comments: Thank you for allowing us to care for you today at [facility]. Today in the emergency department you received treatment for a left-sided nosebleed. You had nasal packing placed here in the emergency department. This will need to be removed in 3 days. Please follow-up with your primary care doctor, urgent care or return to the emergency department at that time. If it anytime you have new or worsening symptoms please not hesitate to return. Forms: PCP List Discharge Date/Time: 07/10/23 16:13
[2023-07-10] MEDS: OXYMETAZOLINE HCL 100 SPRAYS BOTTLE NAS STA (11:14)
[2023-07-10 13:55] VITALS: BP 158/111
[2023-07-10] MEDS: BACITRACIN ZINC OINT 1 PACKET TOP STA (14:39)
[2023-07-10 15:52] VITALS: O2SAT 100
== END 2023-07-10 16:13 | disposition home or self-care (01) ==
LOC: EDUNIT# → ED 10:45
DX: R04.0 Epistaxis (principal); I10 Essential (primary) hypertension; Z79.01 Long term (current) use of anticoagulants
CPT/HCPCS: 30903; 99283; A9270

== ENCOUNTER 2023-08-20 17:58 | Outpatient (CLI) | payer MEDICARE, OTHER | END 2023-08-20 23:59 | disposition critical access hospital (66) | LOC: EMS 17:58 | DX: R00.1 Bradycardia, unspecified (principal) | CPT/HCPCS: A0425; A0429 ==

== ENCOUNTER 2023-08-20 18:29 | Emergency (ER) | payer MEDICARE, OTHER ==
[2023-08-20 18:49] LABS: BASOPHILS # (AUTO) 0.1 10^3/uL (0.0-0.1); BASOPHILS % (AUTO) 0.7 %; EOSINOPHILS # (AUTO) 0.1 10^3/uL (0.0-0.7); EOSINOPHILS % (AUTO) 1.8 %; HCT - HEMATOCRIT 41.6 % (37.0-47.0); LYMPHOCYTES # (AUTO) 1.8 10^3/uL (1.5-3.5); MEAN CORPUSCULAR HEMOGLOBIN 31.2 pg (27.0-31.0); MEAN CORPUSCULAR HGB CONC 31.3 g/dL (32.0-36.0); MEAN CORPUSCULAR VOLUME 99.8 fL (81.0-99.0); MEAN PLATELET VOLUME 11.1 fL (7.9-10.8); MONOCYTES # (AUTO) 0.5 10^3/uL (0.0-1.0); MONOCYTES % (AUTO) 6.8 %; NEUTROPHILS # (AUTO) 4.8 10^3/uL (1.5-6.6); NEUTROPHILS % (AUTO) 65.4 %; PLT - PLATELET COUNT 256 10^3/uL (130-450); RED BLOOD COUNT 4.17 10^6/uL (4.20-5.40); RED CELL DISTRIBUTION WIDTH 13.3 % (12.0-15.0); WHITE BLOOD COUNT 7.4 x10^3/uL (4.8-10.8)
--- NOTE | 2023-08-20 18:52 | ED Physician Documentation ---
History of Present Illness - Stated complaint Stated Complaint: LOW HEART RATE - Chief complaint Chief Complaint: Cardiac - History obtained from History obtained from: Patient - History of Present Illness Timing: Today Pain level max: 0 Pain level now: 0 - Additonal information Additional information: Patient is a 78-year-old female who states that she checked her heart rate today and it read 38. She states she does not have any chest pain or shortness of breath. She states she did feel mildly short of breath when she stood up but does not feel short of breath now. No chest pain. History of atrial fibrillation. 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 She states she is scheduled for a cardiac ablation next month at [facility]. She states that she is on metoprolol at home and they have been changing her metoprolol recently. She states that she does not know the dose but she takes it 4 times daily. No syncope or near syncope. No dizziness. Review of Systems Constitutional: denies: Fever, Chills Throat: denies: Sore throat Respiratory: denies: Cough GI: denies: Nausea, Vomiting, Diarrhea : denies: Dysuria, Frequency, Hesitancy Skin: denies: Rash Neurologic: denies: Syncope PD PAST MEDICAL HISTORY - Past Medical History Past Medical History: Yes Cardiovascular: Hypertension Respiratory: None Neuro: None Endocrine/Autoimmune: None GI: None MOLDER CLOSED MOLDS: None : None HEENT: Other Psych: Depression Musculoskeletal: None Derm: None - Past Surgical History Past Surgical History: Yes Ortho: Hip replacement HEENT: Cataracts - Present Medications Home Medications: Ambulatory Orders Medication Instructions Recorded Confirmed Fluoxetine HCl [Prozac] 20 mg PO DAILY 02/16/23 08/20/23 Levothyroxine [Synthroid] 180 mcg PO QDAC 02/16/23 08/20/23 Losartan [Cozaar] 50 mg PO DAILY 02/16/23 08/20/23 buPROPion HCL [Wellbutrin Xl] 300 mg PO DAILY 02/16/23 08/20/23 Apixaban [Eliquis] 5 mg PO DAILY 08/20/23 08/20/23 Aspirin [Perla Aspirin] 81 mg PO DAILY 08/20/23 08/20/23 Atorvastatin [Lipitor] 20 mg PO DAILY 08/20/23 08/20/23 Metoprolol Succinate [Toprol Xl] 50 mg PO DAILY 08/20/23 08/20/23 - Allergies Allergies/Adverse Reactions: Allergies Allergy/AdvReac Type Severity Reaction Status Date / Time codeine Allergy Rash Verified 08/20/23 18:41 Penicillins Allergy Rash Verified 08/20/23 18:41 Sulfa (Sulfonamide Allergy Rash Verified 08/20/23 18:41 Antibiotics) - Social History Does the pt smoke?: No Smoking Status: Never smoker Does the pt drink ETOH?: No Does the pt have substance abuse?: No - Immunizations Immunizations are current?: Yes - POLST Patient has POLST: No PD ED PE NORMAL - Vitals Vital signs reviewed: Yes - General General: Alert and oriented X 3, No acute distress - HEENT HEENT: PERRL, Ears normal, Moist mucous membranes - Neck Neck: Supple, no meningeal sign - Cardiac Cardiac: Strong equal pulses, Other (bradycardic) - Respiratory Respiratory: No respiratory distress, Clear bilaterally - Abdomen Abdomen: Soft, Non tender, Non distended - Derm Derm: Warm and dry - Extremities Extremities: No edema - Neuro Neuro: Alert and oriented X 3 - Psych Psych: Normal mood, Normal affect Results - Vitals Vitals: Vital Signs - 24 hr 08/20/23 08/20/23 08/20/23 18:32 18:52 19:24 Temperature 36.0 C L 36.0 C L Heart Rate 38 L 38 L 74 Respiratory 12 16 20 Rate Blood Pressure 147/91 H 147/51 H 122/82 H O2 Saturation 99 100 99 08/20/23 20:30 Temperature 36.9 C Heart Rate 60 Respiratory 17 Rate Blood Pressure 118/72 O2 Saturation 100 Oxygen O2 Source Room air - EKG (time done) 1845 EKG releavant findings:: EKG personally interpreted by author of this note. Relevant findings are: Rate: Rate (enter#) (38) Rhythm: Sinus bradycardia [place]: Normal Intervals: Normal [place] QRS: Normal Ischemia: Normal ST segments - Labs Labs: Laboratory Tests 08/20/23 08/20/23 18:44 18:44 WBC 7.4 RBC 4.17 L Hgb 13.0 Hct 41.6 MCV 99.8 H MCH 31.2 H MCHC 31.3 L RDW 13.3 Plt Count 256 MPV 11.1 H Neut # (Auto) 4.8 Lymph # (Auto) 1.8 [place] # (Auto) 0.5 Eos # (Auto) 0.1 Baso # (Auto) 0.1 Absolute Nucleated RBC 0.00 Nucleated RBC % 0.0 Sodium 137 Potassium 5.0 H Chloride 103 Carbon Dioxide 30 Anion Gap 4.0 L BUN 31 H Creatinine 1.1 Estimated GFR (MDRD) 48 L Glucose 94 Calcium 9.9 Phosphorus 3.8 Magnesium 2.0 Total Bilirubin 0.4 AST 26 ALT 27 Alkaline Phosphatase 61 Troponin I High Sens 2.7 Total Protein 6.6 Albumin 4.0 Globulin 2.6 Albumin/Globulin Ratio 1.5 Lipase 27 - Rads (name of study) cxr Relevant Findings:: Final report received, See rad report PD Medical Decision Making - ED course Complexity details: reviewed results, re-evaluated patient, considered differential, d/w patient, d/w engineering consultant ED course: 78-year-old female with asymptomatic bradycardia. No acute findings on laboratory testing, EKG. Upon review of her external medication history it appears that she was placed on metoprolol 50 mg extended release once daily. She is now titrated herself up to 200 mg of the extended release metoprolol daily, likely that this is the cause of her bradycardia. As she is asymptomatic, no dizziness, syncope or near syncope, I feel that she can skip her next 24 hours worth of metoprolol, restart at 50 mg daily on Monday and follow-up with her adaptive physical education teacher. I spoke with the on-call adaptive physical education teacher at [facility] on-call for Dr. Vidales, Dr. Salmeron, she agrees with this plan. Patient is comfortable going home. Patient counseled regarding signs and symptoms for which I believe and urgent re-evaluation would be necessary. Patient with good understanding of and agreement to plan and is comfortable going home at this time This document was made in part using voice recognition software. While efforts are made to proofread this document, sound alike and grammatical errors may occur. Departure - Departure Disposition: Home, Self Care Clinical Impression: Bradycardia Condition: Good Instructions: ED Bradycardia Follow-Up: SHANDA BOOKER ARNP [Primary Care Provider] - Within 1 week Comments: As we discussed you need to not take any metoprolol until Monday. When you resume your metoprolol on Rachel, only take 1 pill daily. Please contact Dr. Vidales's office for follow-up. I spoke with his colleague Dr. Jaron connor Forms: PCP List Discharge Date/Time: 08/20/23 20:35
[2023-08-20 19:07] LABS: ALBUMIN/GLOBULIN RATIO 1.5 (1.0-2.2); BILIRUBIN,TOTAL 0.4 mg/dL (0.2-1.0); CALCIUM 9.9 mg/dL (8.5-10.3); CREATININE 1.1 mg/dL (0.6-1.3); PHOSPHORUS 3.8 mg/dL (2.5-5.0); TOTAL PROTEIN 6.6 g/dL (6.4-8.9)
[2023-08-20 19:14] LABS: TROPONIN I HIGH SENSITIVITY 2.7 ng/L (2.3-14.8)
--- NOTE | 2023-08-20 19:43 | XRAY Report ---
PROCEDURE: Chest 1V INDICATIONS: Chest Pain TECHNIQUE: One view of the chest was acquired. COMPARISON: None. FINDINGS: Surgical changes and devices: ACDF. Lungs and pleura: No pleural effusions or pneumothorax. Lungs are clear. Mediastinum: Mediastinal contours appear normal. Heart size is within normal limits. Bones and chest wall: No suspicious bony lesions. Overlying soft tissues appear unremarkable. IMPRESSION: No acute cardiopulmonary process. Reviewed by: Yinka Ramsey MD on 08/20/2023 7:42 PM PDT Approved by: Yinka Ramsey MD on 08/20/2023 7:42 PM PDT Station ID: [id number]
[2023-08-20 20:41] VITALS: BP 118/72; O2SAT 100
== END 2023-08-20 20:35 | disposition home or self-care (01) ==
LOC: EDUNIT# → ED 18:29
DX: R00.1 Bradycardia, unspecified (principal); I10 Essential (primary) hypertension; Z79.899 Other long term (current) drug therapy; Z79.01 Long term (current) use of anticoagulants; Z79.82 Long term (current) use of aspirin
CPT/HCPCS: 36415; 80053; 83690; 83735; 84100; 84484; 85025; 93005; 99284